=== PATIENT | female | born 1950 | race Asian ===

== ENCOUNTER 2020-04-29 11:49 | Inpatient (IN) | payer OTHER ==
[~2020-04-29] VITALS: Ht 162.6 cm; Wt 60.3 kg
[2020-04-29 12:02] VITALS: Ht 162.6 cm; Wt 60.3 kg
[2020-04-29 13:06] LABS: BASOPHIL % 0.8 % (0-2); PLATELET COUNT 204 x10^3mcL (130-400); RED CELL DISTRIBUTION WIDTH 12.9 % (11.5-14.5)
[2020-04-29 13:11] LABS: CALCIUM 9.2 mg/dL (8.5-10.1); CARBON DIOXIDE 28.6 mmol/L (21-32); CHLORIDE SERUM 103 mmol/L (98-107); CREATININE SERUM 0.6 mg/dL (0.6-1.0); GFR1 > 60 mL/min; GLUCOSE SERUM 102 mg/dL (74-106); POTASSIUM SERUM 3.9 mmol/L (3.5-5.1); SODIUM SERUM 138 mmol/L (136-145)
[2020-04-29 13:16] LABS: ALBUMIN 3.6 g/dL (3.4-5.0); ALKALINE PHOSPHATASE 67 U/L (46-116); ALT/SGPT 22 U/L (14-59); AST/SGOT 19 U/L (15-37); BILIRUBIN TOTAL 0.5 mg/dL (0.20-1.00); TOTAL PROTEIN, SERUM 7.5 g/dL (6.4-8.2)
[2020-04-29] MEDS ORDERED: BISOPROLOL FUMA1 TA1 PO ×2 (15:26→15:31)
[2020-04-29] MEDS ORDERED: ASPIRIN CHILDRE81 MG (15:30)
[2020-04-29] MEDS ORDERED: FORTAMET500 M1 PO (15:30)
[2020-04-29] MEDS ORDERED: ATORVASTATIN CA20 M1 (15:32)
[2020-04-29] MEDS ORDERED: COZAAR50 M1 PO (15:32)
[2020-04-29 16:08] LABS: microscopic required? YES; urine erythrocyte 3+ (NEGATIVE)
[2020-04-29 16:09] VITALS: BP 139/76
[2020-04-29 16:16] LABS: PHOSPHOROUS 3.8 mg/dL (2.5-4.9)
[2020-04-29 16:25] LABS: CHOLESTEROL/HDL RATIO 3.6
[2020-04-29 16:31] LABS: AMPHETAMINE QUAL UR NONE DETECTED (See below)
[2020-04-29 19:15] VITALS: BP 112/59
[2020-04-30 05:44] VITALS: BP 132/71
[2020-04-30 08:45] VITALS: BP 135/71
[2020-04-30 12:03] VITALS: BP 138/71
[2020-04-30] MEDS ORDERED: LOP50 PO (16:24)
[2020-04-30] MEDS ORDERED: LEVAQUIN500 M1 PO (16:26)
[2020-04-30 16:39] VITALS: BP 141/74
[2020-04-30 17:39] VITALS: BP 141/74
== END 2020-04-30 18:42 | disposition home or self-care (01) | DRG 203 ==
LOC: ED 11:49 → DU 13:54 → MU 04-30 16:19
PROVIDERS: Emergency Medicine; ADMIT Student in an Organized Health Care Education/Training Program; ATTEND Student in an Organized Health Care Education/Training Program
DX: M94.0 Chondrocostal junction syndrome [Tietze] (principal); E11.9 Type 2 diabetes mellitus without complications; I10 Essential (primary) hypertension; I25.10 Atherosclerotic heart disease of native coronary artery without angina pectoris; N39.0 Urinary tract infection, site not specified; E78.5 Hyperlipidemia, unspecified; Z79.84 Long term (current) use of oral hypoglycemic drugs; Z79.899 Other long term (current) drug therapy
CPT/HCPCS: 82962; 83880; G0378; J0696; J7030; Q0092